=== PATIENT | female | born 1970 | race Caucasian/White ===

== ENCOUNTER → 2024-10-07 08:56 | Outpatient (REF) | payer BC, SELFPAY | LOC: WDC 08:56 | PROVIDERS: ATTENDING PHYSICIAN Nurse Practitioner Women's Health; FAMILY PHYSICIAN Family Medicine | DX: Z12.31 Encounter for screening mammogram for malignant neoplasm of breast (principal) | CPT/HCPCS: 77063; 77067 ==

== ENCOUNTER → 2025-07-31 13:57 | Outpatient (REF) | payer BC, SELFPAY | LOC: RAD 13:57 | PROVIDERS: ATTENDING PHYSICIAN Family Medicine | DX: D25.9 Leiomyoma of uterus, unspecified (principal); N95.1 Menopausal and female climacteric states; Z79.890 Hormone replacement therapy | CPT/HCPCS: 76830; 76856 ==